=== PATIENT | female | born 1975 | race Caucasian/White ===

== ENCOUNTER 2016-08-18 17:33 | Outpatient (CLI) | payer MEDICAID ==
[~2016-08-18] VITALS: Ht 165.1 cm; Wt 100.0 kg
[2016-08-18 17:38] VITALS: Ht 165.1 cm; Wt 100.0 kg
[2016-08-18 18:01] VITALS: BP 141/66; PULSE 101; RESP 19
--- NOTE | 2016-08-18 18:32 | RADRPT ---
PROCEDURE: US OB. CLINICAL INDICATION: Size and dates , PIH TECHNIQUE: Multiple sonographic images of the pelvis and gravid uterus were obtained. The images were reviewed on a PACS workstation. COMPARISON: No prior studies are available for comparison. FINDINGS: There is a single viable intrauterine gestation. Cardiac activity is present with 144 beats per min jaya. There is a vertex presentation. The placenta is anterior. There is no evidence for an abruption or placenta previa. There is a normal amount of amniotic fluid with an JIN = 15 cm. Measurements were made in order to determine age. The results are as follows: BPD =8.7 cm HC =31.5 cm AC =35.4 cm FL =7.2 cm Estimated gestational age of approximately 36 weeks and 5 days based on ultrasound measurements. Clinical age: 34 weeks and 0 days. The estimated date of delivery is 09/10/16, based on ultrasound measurements. The EFW = 3307 g, >97%, based on LMP age. RPTAT: AA IMPRESSION: Single viable intrauterine gestation of approximately 36 weeks and 5 days based on ultrasound measu rements. Larger than clinical age by almost 3 weeks. .Jori Landis MD, MD Date Time Electronically viewed and signed by .Jori Landis MD, on 08/18/2016 18:32 .S/
[2016-08-18 18:44] LABS: ADD SCAN DIFF NO
[2016-08-18 18:46] LABS: BASOPHILS % 0.4 % (0.0-2.0); EOSINOPHILS # 0.1 10^3/ul (0.0-0.5); HEMATOCRIT 30.6 % (37.0-47.0); HEMOGLOBIN 9.9 g/dl (12.0-16.0); LYMPHOCYTES % 17.7 % (15.0-51.0); MEAN CORPUSCULAR HGB CONC 32.4 g/dl (32.0-37.0); MEAN CORPUSCULAR VOLUME 83.6 fl (82.0-101.0); MEAN PLATELET VOLUME 10.4 fl (7.4-10.4); MONOCYTE # 0.7 10^3/ul (0.3-0.9); MONOCYTES % 6.2 % (0.0-11.0); NEUTROPHIL # 8.2 10^3/ul (1.6-7.5); NEUTROPHILS % 74.2 % (39.0-77.0); PLATELET COUNT 343 10^3/UL (140-415); RED BLOOD COUNT 3.66 10^6/ul (4.20-5.40)
[2016-08-18 19:06] LABS: ADD UMIC YES; URINE BILIRUBIN (Dip) 1+ (NEGATIVE); URINE BLOOD (Dip) TRACE (NEGATIVE); URINE COLOR YELLOW (YELLOW); URINE GLUCOSE (Dip) NEGATIVE (NEGATIVE); URINE KETONES (Dip) TRACE (NEGATIVE); URINE LEUKOCYTE ESTERASE (Dip) NEGATIVE (NEGATIVE); URINE NITRITE (Dip) NEGATIVE (NEGATIVE); URINE TOTAL PROTEIN (Dip) 1+ (NEGATIVE); URINE UROBILINOGEN (Dip) 1.0 E.U./dL (0.1-1.0)
[2016-08-18 19:10] LABS: ALBUMIN 3.3 g/dl (3.3-4.9)
[2016-08-18 19:11] LABS: POTASSIUM 3.7 mmol/L (3.5-5.1)
[2016-08-18 19:13] LABS: ALBUMIN/GLOBULIN RATIO 1.03; BILIRUBIN,INDIRECT 0.1 mg/dl (0-1.1); BILIRUBIN,TOTAL 0.1 mg/dl (0.2-1.3); CREATININE 0.53 mg/dl (0.44-1.00); TOTAL PROTEIN 6.5 g/dl (6.1-8.1)
[2016-08-18 19:14] LABS: CALCIUM 8.7 mg/dl (8.4-10.2); URIC ACID 3.9 mg/dl (3.1-7.9)
[2016-08-18 19:26] LABS: ICTOTEST NEGATIVE (NEGATIVE)
[2016-08-18 19:27] LABS: SQUAMOUS EPITHELIAL CELL,UR MANY; URINE RBCS 0-2 /HPF (0)
[2016-08-18 19:28] LABS: BACTERIA,URINE FEW
--- NOTE | 2016-08-18 20:41 | PN ---
Date/Time of Note Date/Time of Note DATE: 08/18/16 TIME: 20:36 OB Subjective Subjective Subjective 41 yo P3 @34 wks, sent for PIH, BP's here 125-135/60-75 denies headache, blurry vision, or ruq pain good fm, no vb, no lof OB Objective Objective Objective see bp's in HPI Abdomen- gravid, n/t SVE- deferred FHT- CAt I [place]- irreg ctx labs- nml PIH labs; 1+ protein in urine Abdomen: WNL Extremities: Normal Membranes: Intact Accelerations: Accelerations Present Decelerations: No Decelerations Varibility: Moderate Contractions on Admission: 6-10 Minutes Apart Intensity: Mild OB Assessment/Plan Other Assessment: 41 yo P3 @ 34 wks, r/o PIH - reassuring status - nml BP's Other plan: d/c home w 24 hr urine collection and PIH precautions patient to f/u w JAMES Pathak MD Aug 18, 2016 20:41
--- NOTE | 2016-08-18 21:10 | TRIAGE ---
OB Triage Datetime Report Generated by CPN: 08/18/2016 21:09 Datetime: 08/18/2016 20:25 Stage of : OB Triage Labor Evaluation Frequency: IRREGULAR Monitor Mode: External Duration (sec)2399: 30-40 Heart Rate FHR Baseline Rate: 140 Monitor Mode: External US Variability: Moderate 6-25 bpm Accelerations: 15X15 Decelerations: None Category: Category I Datetime: 08/18/2016 20:06 Stage of : OB Triage Datetime: 08/18/2016 20:00 Stage of : OB Triage Datetime: 08/18/2016 19:32 Stage of : OB Triage Labor Evaluation Frequency: OCCASIONALLY Monitor Mode: External Duration (sec)2399: 40-60 Quality: Mild Pattern: Normal: <= 5 Contractions in 10 Minutes Heart Rate FHR Baseline Rate: 155 Monitor Mode: External US Variability: Moderate 6-25 bpm Accelerations: 15X15 Decelerations: None Category: Category I Pain Presence: None/Denies Datetime: 08/18/2016 18:59 Labor Evaluation Frequency: IRREG Monitor Mode: External Duration (sec)2399: 50-100 Pattern: Normal: <= 5 Contractions in 10 Minutes Resting Tone [place]: Relaxed Contraction Comments: PT. DENIES FEELING UC'S Heart Rate FHR Baseline Rate: 140 Monitor Mode: External US Variability: Moderate 6-25 bpm Accelerations: 15X15 Decelerations: Variable Category: Category II Comments: MILD VARIABLE DECELS NOTED Pain Assessment Pain Scale: 4 Pain Presence: Intermittent Pain Type: Pressure Pain Location: Abdomen Pain Relief Measures: Comfort Measures Datetime: 08/18/2016 18:08 Labor Evaluation Frequency: 2-4 Monitor Mode: External Duration (sec)2399: 40-80 Pattern: Normal: <= 5 Contractions in 10 Minutes Resting Tone [place]: Relaxed Contraction Comments: PT. DENIES FEELING UC'S Heart Rate FHR Baseline Rate: 145 Monitor Mode: External US Variability: Moderate 6-25 bpm Accelerations: 15X15 Decelerations: None Category: Category I Pain Assessment Pain Scale: 4 Pain Presence: Intermittent Pain Type: Pressure Pain Location: Abdomen Pain Relief Measures: Comfort Measures Datetime: 08/18/2016 17:54 Time of Arrival: 08/18/2016 17:29 EGA: 34.0 Arrived By: Ambulatory Arrived From: Office Chief Complaint: PRESCRIPTION FROM CLINIC FOR PIH WORK UP, SONO FOR EFW AND JIN Movement: Present Contractions: Denies/Absent Rupture of Membranes: Denies Vaginal Bleeding: None Vaginal Discharge: Denies Recent Sexual Intercouse: Denies Abdominal Trauma: Not Applicable Patient Complaints: None Time Provider Notified: 08/18/2016 20:06 Provider Notified: DR. TORRES Initial Plan: V/S, TOCO- U/S, CBC, CMP, URIC ACID, U/A, EFW, JIN Datetime: 08/18/2016 17:41 Stage of : OB Triage Pain Presence: None/Denies
== END 2016-08-18 20:40 | disposition home or self-care (01) ==
LOC: OBT 17:33 → L-D 17:34 → OBT 20:40
PROVIDERS: ATTEND Obstetrics & Gynecology
DX: O26.893 Other specified pregnancy related conditions, third trimester (principal); R03.0 Elevated blood-pressure reading, without diagnosis of hypertension; O09.523 Supervision of elderly multigravida, third trimester; Z3A.34 34 weeks gestation of pregnancy
CPT/HCPCS: 76815; 80053; 81001; 84560; 85025; Z7500; 81003; G0463

== ENCOUNTER 2016-08-19 22:08 | Outpatient (CLI) | payer MEDICAID ==
[~2016-08-19] VITALS: Ht 165.1 cm; Wt 100.8 kg
[2016-08-19 22:24] VITALS: Ht 165.1 cm; Wt 100.8 kg
[2016-08-19 22:25] VITALS: BP 131/66; PULSE 90; RESP 20
[2016-08-19 22:39] LABS: ADD SCAN DIFF NO
[2016-08-19 22:41] LABS: BASOPHILS % 0.3 % (0.0-2.0); EOSINOPHILS # 0.1 10^3/ul (0.0-0.5); EOSINOPHILS % 1.4 % (0.0-7.0); HEMATOCRIT 30.2 % (37.0-47.0); HEMOGLOBIN 10.1 g/dl (12.0-16.0); LYMPHOCYTES # 1.7 10^3/ul (0.8-2.9); LYMPHOCYTES % 19.5 % (15.0-51.0); MEAN CORPUSCULAR HEMOGLOBIN 27.5 pg (29.0-33.0); MEAN CORPUSCULAR HGB CONC 33.4 g/dl (32.0-37.0); MEAN CORPUSCULAR VOLUME 82.3 fl (82.0-101.0); MEAN PLATELET VOLUME 9.9 fl (7.4-10.4); MONOCYTE # 0.5 10^3/ul (0.3-0.9); MONOCYTES % 5.5 % (0.0-11.0); NEUTROPHIL # 6.4 10^3/ul (1.6-7.5); PLATELET COUNT 341 10^3/UL (140-415); RED BLOOD COUNT 3.67 10^6/ul (4.20-5.40); WHITE BLOOD COUNT 8.8 10^3/ul (4.8-10.8)
[2016-08-19 22:53] LABS: ALBUMIN 3.2 g/dl (3.3-4.9)
[2016-08-19 22:54] LABS: POTASSIUM 3.7 mmol/L (3.5-5.1)
[2016-08-19 22:56] LABS: BILIRUBIN,INDIRECT 0.1 mg/dl (0-1.1); BILIRUBIN,TOTAL 0.1 mg/dl (0.2-1.3); CREATININE 0.42 mg/dl (0.44-1.00); TOTAL PROTEIN 6.4 g/dl (6.1-8.1); URIC ACID 3.6 mg/dl (3.1-7.9)
--- NOTE | 2016-08-20 01:45 | TRIAGE ---
OB Triage Datetime Report Generated by CPN: 08/20/2016 01:45 Datetime: 08/19/2016 23:54 Stage of : OB Triage Labor Evaluation Frequency: x1 Monitor Mode: External Duration (sec)2399: 60 Quality: Mild Pattern: Normal: <= 5 Contractions in 10 Minutes Resting Tone [place]: Relaxed Heart Rate FHR Baseline Rate: 135 Monitor Mode: External US FHR Baseline Changes: No Baseline Change Variability: Moderate 6-25 bpm Accelerations: 15X15 Decelerations: None Category: Category I Datetime: 08/19/2016 23:40 Stage of : OB Triage Datetime: 08/19/2016 23:32 Stage of : OB Triage Datetime: 08/19/2016 23:29 Stage of : OB Triage Datetime: 08/19/2016 23:10 Stage of : OB Triage Datetime: 08/19/2016 23:00 Stage of : OB Triage Labor Evaluation Frequency: x3 Monitor Mode: External Duration (sec)2399: 40-60 Quality: Mild Pattern: Normal: <= 5 Contractions in 10 Minutes Resting Tone [place]: Relaxed Heart Rate FHR Baseline Rate: 135 Monitor Mode: External US Variability: Moderate 6-25 bpm Accelerations: 15X15 Decelerations: None Category: Category I Datetime: 08/19/2016 22:18 Stage of : OB Triage Temperature Route: Oral Pain Assessment Pain Scale: 0 Pain Presence: None/Denies Pain Type: N/A Datetime: 08/19/2016 22:17 Assessment Type: Triage Maternal Assessment Level of Consciousness: Fully Conscious DTR's/Clonus: DTRs 2+; No Clonus Headache: Denies Blurred Vision: No Respiratory Effort: Unlabored; Regular Rhythm; Equal Expansion Breath Sounds, Left: Clear and Equal Breath Sounds, Right: Clear and Equal Nausea/Vomiting: Hx of Nausea/Vomiting (Annotations: Nausea eariler today. Denies at this time.) RUQ Epigastric Pain: Denies Lower Extremities Edema: None Degree: None Upper Extremities Edema: None Degree: None Facial Edema: None Fall Risk Assessment History of Falling: (0) No Secondary Diagnosis: (0) No Ambulatory Aid: (0) Bedrest/Nurse Assist IV Therapy: (0) No Gait: (0) Normal/Bedrest/Immobile Mental Status: (0) Oriented to Own Ability Fall Score: 0 Fall Risk Score Definition: No Risk: No action required Datetime: 08/19/2016 22:14 Monitor Mode: External Contraction Comments: [place] applied Heart Rate FHR Baseline Rate: 145 Monitor Mode: External US Comments: EFM applied Datetime: 08/19/2016 22:10 Time of Arrival: 08/19/2016 22:00 EGA: 34.1 Arrived By: Wheelchair Arrived From: Home Chief Complaint: 24hr urine drop-off Repeat CBC, CMP, uric acid Movement: Present Contractions: Denies/Absent Rupture of Membranes: Denies Vaginal Bleeding: None Vaginal Discharge: Denies Abdominal Trauma: Not Applicable Patient Complaints: None; Other Additional Patient Complaints: 24hr urine drop-off Time Provider Notified: 08/19/2016 22:05 Provider Notified: Initial Plan: EFM x2, BPs [id number], CBC, CMP, uric acid Datetime: 08/19/2016 22:05 Stage of : OB Triage Datetime: 08/18/2016 20:30 Stage of : OB Triage Datetime: 08/18/2016 17:54 EGA: 34.0
[2016-08-20 03:27] LABS: SCRET 0.42 mg/dl (0.44-1.00)
== END 2016-08-20 00:02 | disposition home or self-care (01) ==
LOC: L-D 22:08 → OBT 22:08
PROVIDERS: ATTEND Obstetrics & Gynecology
DX: O60.03 Preterm labor without delivery, third trimester (principal); O14.93 Unspecified pre-eclampsia, third trimester; O09.513 Supervision of elderly primigravida, third trimester; Z3A.34 34 weeks gestation of pregnancy
CPT/HCPCS: 80053; 82575; 84156; 84560; 85025; Z7500; G0463

== ENCOUNTER 2016-09-15 18:35 | Inpatient (IN) | payer MEDICAID ==
[~2016-09-15] VITALS: Ht 165.1 cm; Wt 103.3 kg
[2016-09-15 18:57] VITALS: Ht 165.1 cm; Wt 103.3 kg
--- NOTE | 2016-09-15 19:46 | RADRPT ---
PROCEDURE: OB ultrasound for biophysical profile CLINICAL INDICATION: Macrosomia.. TECHNIQUE: Multiple sonographic images of the gravid uterus performed. The images were reviewed on a PACS workstation. COMPARISON: 09/13/2016 FINDINGS: A single live intrauterine is identified with heart rate of 156 bpm. Fet us is in a cephalic presentation. Placenta is located anterior. Biophysical profile: breathing movement = 2/2 tone = 2/2 motion = 2/2 JIN = 2/2 JIN = 14.3 cm. IMPRESSION: 1. Single live intrauterine gestation. 2. Biophysical profile = 8/8. 3. JIN = 14.3 cm. RPTAT: HMVK .All Baum MD, Date Time Electronically viewed and signed by .All Baum MD, MD on 09/15/2016 19:46 .K/
[2016-09-15 19:47] LABS: ADD SCAN DIFF NO
--- NOTE | 2016-09-15 19:48 | RADRPT ---
PROCEDURE: US OB. CLINICAL INDICATION: Macrosomia. TECHNIQUE: Multiple sonographic images of the pelvis were obtained. Transabdominal imaging only w as performed. The images were reviewed on a PACS workstation. COMPARISON: 09/13/2016. FINDINGS: Single live intrauterine is identified. Cardiac activity is present with 68 beats per min cher-ae heights. There is a vertex presentation. Measurements: BPD = 39-week 0 days. HC = 39 weeks 1 day. AC = 41 weeks 6 days. FL = 40 weeks 2 days. Estimated gestational age of approximately 40 weeks 1 day. The EFW = 4200 g which is at the greater than 97%. The placenta is anterior. There is no evidence for placenta previa. IMPRESSION: Single live intrauterine gestation of approximately 40 weeks 1 day. size is greater than 97 p ercentile. RPTAT: HMVK .All Baum MD, Date Time Electronically viewed and signed by .All Baum MD, MD on 09/15/2016 19:48 .K/
[2016-09-15 19:51] LABS: BASOPHILS % 0.3 % (0.0-2.0); EOSINOPHILS # 0.1 10^3/ul (0.0-0.5); EOSINOPHILS % 0.9 % (0.0-7.0); HEMATOCRIT 29.9 % (37.0-47.0); HEMOGLOBIN 9.9 g/dl (12.0-16.0); LYMPHOCYTES # 1.8 10^3/ul (0.8-2.9); MEAN CORPUSCULAR HEMOGLOBIN 26.5 pg (29.0-33.0); MEAN CORPUSCULAR HGB CONC 33.1 g/dl (32.0-37.0); MEAN CORPUSCULAR VOLUME 79.9 fl (82.0-101.0); MEAN PLATELET VOLUME 10.1 fl (7.4-10.4); MONOCYTE # 0.5 10^3/ul (0.3-0.9); MONOCYTES % 4.8 % (0.0-11.0); NEUTROPHIL # 7.4 10^3/ul (1.6-7.5); NEUTROPHILS % 75.4 % (39.0-77.0); PLATELET COUNT 332 10^3/UL (140-415); RED BLOOD COUNT 3.74 10^6/ul (4.20-5.40); RED CELL DISTRIBUTION WIDTH 13.7 % (11.5-14.5); WHITE BLOOD COUNT 9.8 10^3/ul (4.8-10.8)
[2016-09-15 19:59] LABS: ADD UMIC YES; URINE BILIRUBIN (Dip) NEGATIVE (NEGATIVE); URINE BLOOD (Dip) TRACE (NEGATIVE); URINE COLOR LT. YELLOW (YELLOW); URINE GLUCOSE (Dip) NEGATIVE (NEGATIVE); URINE KETONES (Dip) TRACE (NEGATIVE); URINE LEUKOCYTE ESTERASE (Dip) TRACE (NEGATIVE); URINE NITRITE (Dip) NEGATIVE (NEGATIVE); URINE TOTAL PROTEIN (Dip) TRACE (NEGATIVE); URINE UROBILINOGEN (Dip) 1.0 E.U./dL (0.1-1.0)
[2016-09-15 20:02] LABS: ALBUMIN 3.2 g/dl (3.3-4.9); POTASSIUM 3.6 mmol/L (3.5-5.1)
[2016-09-15 20:04] LABS: CREATININE 0.64 mg/dl (0.44-1.00)
[2016-09-15 20:05] LABS: ALBUMIN/GLOBULIN RATIO 0.91; BILIRUBIN,INDIRECT 0.3 mg/dl (0-1.1); BILIRUBIN,TOTAL 0.3 mg/dl (0.2-1.3); CALCIUM 9.2 mg/dl (8.4-10.2); TOTAL PROTEIN 6.7 g/dl (6.1-8.1)
[2016-09-15 20:08] LABS: BACTERIA,URINE MODERATE; URINE RBCS 0-2 /HPF (0)
[2016-09-15] MEDS ORDERED: ACETAMINOPHEN 325 MG TAB PO PRN (21:30)
[2016-09-16] MEDS ORDERED: MAGNESIUM SULFATE 4 GM/100 ML 100 ML IV SCH (02:00)
[2016-09-16] MEDS: LACTATED RINGER'S 1,000 ML IV SCH ×2 (02:43→14:48)
[2016-09-16] MEDS: MAGNESIUM SULFATE 20 GM/500 ML 500 ML IV SCH ×3 (02:44→23:02)
[2016-09-16] MEDS ORDERED: MULTIVIT/MIN/FOLATE/IRON/PREN TAB PO SCH (09:00)
[2016-09-16] MEDS ORDERED: FERROUS SULFATE (EC) 325 MG TAB PO SCH (09:00)
--- NOTE | 2016-09-16 11:19 | CONS ---
DATE OF ADMISSION: 09/15/2016 DATE OF CONSULTATION: 09/16/2016 NOTE: The patient is a 41-year-old who was admitted, I do believe, with elevated blood pressure. S he has chronic hypertension, and she has had moderate range blood pressures during her hospital stay . She is currently at 38 weeks and 1 day with an estimated weight of 4200 grams. RECOMMENDATIONS: Delivery secondary to chronic hypertension and worsening. Dictated By: SUDEEP LUGO/VALERIY Conf#: [id number] DID#: [id number]
[2016-09-16 14:30] LABS: ADD SCAN DIFF NO
[2016-09-16 14:32] LABS: BASOPHILS % 0.2 % (0.0-2.0); EOSINOPHILS # 0.1 10^3/ul (0.0-0.5); EOSINOPHILS % 0.6 % (0.0-7.0); HEMATOCRIT 30.7 % (37.0-47.0); HEMOGLOBIN 9.7 g/dl (12.0-16.0); LYMPHOCYTES # 1.3 10^3/ul (0.8-2.9); LYMPHOCYTES % 16.3 % (15.0-51.0); MEAN CORPUSCULAR HEMOGLOBIN 25.5 pg (29.0-33.0); MEAN CORPUSCULAR HGB CONC 31.6 g/dl (32.0-37.0); MEAN CORPUSCULAR VOLUME 80.6 fl (82.0-101.0); MEAN PLATELET VOLUME 10.4 fl (7.4-10.4); MONOCYTE # 0.4 10^3/ul (0.3-0.9); MONOCYTES % 4.8 % (0.0-11.0); NEUTROPHIL # 6.3 10^3/ul (1.6-7.5); NEUTROPHILS % 77.7 % (39.0-77.0); PLATELET COUNT 335 10^3/UL (140-415); RED BLOOD COUNT 3.81 10^6/ul (4.20-5.40); RED CELL DISTRIBUTION WIDTH 13.9 % (11.5-14.5); WHITE BLOOD COUNT 8.2 10^3/ul (4.8-10.8)
[2016-09-16 14:45] LABS: PROTIME 13.2 Sec (12.2-14.2)
[2016-09-16 14:46] LABS: PARTIAL THROMBOPLASTIN TIME 25.1 Sec (25.0-35.0)
[2016-09-16 14:49] LABS: ALBUMIN 3.2 g/dl (3.3-4.9); ALBUMIN/GLOBULIN RATIO 0.88; BILIRUBIN,INDIRECT 0.2 mg/dl (0-1.1); BILIRUBIN,TOTAL 0.2 mg/dl (0.2-1.3); CALCIUM 7.8 mg/dl (8.4-10.2); CREATININE 0.48 mg/dl (0.44-1.00); POTASSIUM 3.9 mmol/L (3.5-5.1); TOTAL PROTEIN 6.8 g/dl (6.1-8.1)
[2016-09-16] MEDS ORDERED: CEFAZOLIN 2 GM/50 ML (PMX) 50 ML IVPB ONE (18:28)
[2016-09-16] MEDS ORDERED: CARBOPROST 250 MCG INJ IM PRN (18:30)
[2016-09-16] MEDS ORDERED: OXYTOCIN 30 UNITS/LR 500 ML IV PRN (18:30)
[2016-09-16] MEDS ORDERED: METHYLERGONOVINE 0.2 MG INJ IM PRN (18:30)
[2016-09-16] MEDS ORDERED: CEFAZOLIN 2 GM/50 ML (PMX) 50 ML IV SCH (18:30)
[2016-09-16] MEDS ORDERED: MISOPROSTOL 200 MCG TAB PR PRN (18:30)
[2016-09-16 19:17] LABS: ADD SCAN DIFF NO
[2016-09-16 19:19] LABS: BASOPHILS % 0.3 % (0.0-2.0); EOSINOPHILS # 0.1 10^3/ul (0.0-0.5); EOSINOPHILS % 0.7 % (0.0-7.0); HEMATOCRIT 31.5 % (37.0-47.0); HEMOGLOBIN 10.4 g/dl (12.0-16.0); LYMPHOCYTES # 1.6 10^3/ul (0.8-2.9); LYMPHOCYTES % 17.5 % (15.0-51.0); MEAN CORPUSCULAR HEMOGLOBIN 26.5 pg (29.0-33.0); MEAN CORPUSCULAR VOLUME 80.2 fl (82.0-101.0); MEAN PLATELET VOLUME 10.4 fl (7.4-10.4); MONOCYTE # 0.5 10^3/ul (0.3-0.9); MONOCYTES % 5.1 % (0.0-11.0); NEUTROPHIL # 6.8 10^3/ul (1.6-7.5); PLATELET COUNT 338 10^3/UL (140-415); RED BLOOD COUNT 3.93 10^6/ul (4.20-5.40); RED CELL DISTRIBUTION WIDTH 13.9 % (11.5-14.5)
[2016-09-16] MEDS ORDERED: OXYTOCIN 30 UNITS/LR 500 ML IV SCH (19:30)
[2016-09-16 19:59] LABS: SCRET 0.48 mg/dl (0.44-1.00)
[2016-09-16 20:58] LABS: PROTIME 12.7 Sec (12.2-14.2)
[2016-09-16 20:59] LABS: INR 0.95
[2016-09-16 21:01] LABS: PARTIAL THROMBOPLASTIN TIME 26.3 Sec (25.0-35.0)
[2016-09-16] MEDS ORDERED: OXYTOCIN 30 UNITS/LR 500 ML IV ONE (21:31)
[2016-09-16] MEDS ORDERED: METOCLOPRAMIDE 10 MG INJ ONE (21:31)
[2016-09-16] MEDS ORDERED: morphine SULFATE/PF (10 MG/10 ML) INJ ONE (21:31)
[2016-09-16] MEDS ORDERED: KETOROLAC 30 MG INJ ONE (21:31)
[2016-09-16] MEDS ORDERED: EPHEDrine SULFATE 50 MG/5 ML SYG ONE (21:47)
[2016-09-16] MEDS ORDERED: DIPHENHYDRAMINE 50 MG INJ IV PRN ×2 (23:00)
[2016-09-16] MEDS ORDERED: KETOROLAC 30 MG INJ IV PRN (23:00)
[2016-09-16] MEDS ORDERED: METOCLOPRAMIDE 10 MG INJ IV PRN (23:00)
[2016-09-16] MEDS ORDERED: NALOXONE (0.4 MG/ML) INJ IV PRN (23:00)
[2016-09-16] MEDS ORDERED: MEPERIDINE 25 MG INJ IV PRN (23:00)
[2016-09-16] MEDS ORDERED: ONDANSETRON 4 MG INJ IV PRN ×2 (23:00)
[2016-09-16] MEDS ORDERED: HYDROmorphONE (0.2 MG/ML) 10ML SYG IV PRN ×3 (23:00)
[2016-09-16] MEDS ORDERED: HYDROmorphONE 1 MG/ML SYG IV PRN ×3 (23:00)
[2016-09-17] VITALS (21 sets, daily range): BP systolic 111–150; BP diastolic 56–84; PULSE 81–92; RESP 18–20
--- NOTE | 2016-09-17 00:21 | PREOPHP ---
DATE OF ADMISSION: 09/15/2016 HISTORY OF PRESENT ILLNESS: A 41-year-old female, 4, para 3, estimated date of delivery at 38 weeks gestation was admitted due to elevated blood pressure. PAST MEDICAL HISTORY: Unremarkable. ALLERGIES: NO KNOWN ALLERGIES. FAMILY HISTORY: Noncontributory. PHYSICAL EXAMINATION: VITAL SIGNS: The patient is afebrile, blood pressure 140s to 160s over diastolic 80s and 90s. HEAD, NECK AND CHEST: Within normal limits. ABDOMEN: Soft, nontender and gravid. EXTREMITIES: Within normal limits. NEUROLOGIC: Within normal limits. HOSPITAL COURSE: The patient was admitted due to elevated blood pressure. The patient was given in travenous magnesium sulfate for seizure prophylaxis. Obstetric ultrasound gave an estimated w eight of 4200 grams. Recommendation of perinatologist is to deliver the patient. The patient is co unseled about her options of delivery either with induction of labor or delivery by primary section. The patient was counseled about suspected macrosomia based on estimated weigh t from ultrasound. The patient was counseled about the potential complications of shoulder dystocia . After counseling, the patient said she understood and the patient elected to deliver by primary c esarean section. Risks, benefits and alternatives of the procedure were explained to the patient. The patient said she understood and gave informed consent for the procedure. Dictated By: NORBERT ADAIR/VALERIY Conf#: [id number] DID#: [id number]
[2016-09-17] MEDS: LACTATED RINGER'S 1,000 ML IV SCH ×3 (01:51→19:00)
[2016-09-17] MEDS ORDERED: LANOLIN 7 GM TUBE TOP PRN (02:00)
[2016-09-17] MEDS ORDERED: CARBOPROST 250 MCG INJ IM PRN (02:00)
[2016-09-17] MEDS ORDERED: MISOPROSTOL 200 MCG TAB PR PRN (02:00)
[2016-09-17] MEDS ORDERED: METHYLERGONOVINE 0.2 MG INJ IM PRN (02:00)
[2016-09-17] MEDS ORDERED: OXYTOCIN 30 UNITS/LR 500 ML IV PRN (02:00)
[2016-09-17] MEDS: OXYTOCIN 30 UNITS/LR 500 ML IV SCH ×2 (05:38→05:51)
--- NOTE | 2016-09-17 05:53 | OPR ---
DATE OF OPERATION: 09/16/2016 PREOPERATIVE DIAGNOSES: 1. at 38 weeks and 1 day. 2. Preeclampsia. 3. Suspected macrosomia. POSTOPERATIVE DIAGNOSES: 1. at 38 weeks and 1 day. 2. Preeclampsia. 3. Suspected macrosomia. OPERATION PERFORMED: Primary low transverse section. SURGEON: Norbert Vann MD JET PILOT: Alida Aldana MD ANESTHESIA: Spinal. ANESTHESIOLOGIST: DESCRIPTION OF PROCEDURE: The patient was taken to the operating room and placed on the operating table. After successful spinal anesthesia was given, the patient was placed in supine position. The area was prepared and draped in the usual sterile fashion. Spinal anesthesia was tested and was satisfactory. Using a scalpel, a Pfannenstiel incision was made about 2 fingerbreadths above the symphysis pubis. The incision was carried down to the fascia. Fascia was incised and extended bilaterally with Tirado scissors. Two Lilly's were used to separate the fascia from the muscle. The muscle was dissected down to anterior peritoneum. The peritoneum was bluntly entered. Using a scalpel, a small transverse incision was made in the lower segment of the uterus. Upon entering the uterine cavity, bandage scissors were inserted to extend the incision bilaterally, curved up. Baby was delivered from cephalic presentation. After suctioning clear of amniotic fluid, the baby was handed off to the team in attendance. Apgars were 9 and 9, weight was 9 pounds 6 ounces. The placenta was delivered without difficulty. Uterus was closed with #1 Monocryl continuous locked after assuring hemostasis. Both ovaries and tubes were inspected, all looked normal. The peritoneal cavity was irrigated with warm saline. Peritoneum was closed with 2-0 Vicryl continuous. The fascia was closed with #1 Vicryl continuous in 2 segments. Subcutaneous tissue was reapproximated with 2-0 plain. The skin was closed with jelani. ESTIMATED BLOOD LOSS: 600 mL. COMPLICATIONS: None. COUNTS: All counts were correct. Dictated By: NORBERT ADAIR/VALERIY Conf#: [id number] DID#: [id number] MTDD
--- NOTE | 2016-09-17 07:09 | PN ---
Date/Time of Note Date/Time of Note DATE: 09/17/16 TIME: 07:07 Assessment/Plan VTE Prophylaxis VTE Prophylaxis Intervention: ambulation Lines/Catheters IV Catheter Type (from Nrsg): Peripheral IV Subjective 24 Hr Interval Summary Free Text/Dictation Anesthesia Note: A 41 year female s/p C/S with duramph for post op pain, pt is doing fine, pain is controoed, no N/V, headache, itching. back is clean no irritation or inflammation. care per surgery team Exam/Review of Systems Vital Signs Vitals Vital Signs Date Time Temp Pulse Resp B/P Pulse Ox O2 Delivery O2 Flow Rate FiO2 09/17/16 06:30 98.0 86 18 125/70 Room Air Intake and Output 09/16/16 09/16/16 09/17/16 15:00 23:00 07:00 Intake Total 731.25 ml 2750 ml 1800 ml Output Total 1000 ml 1250 ml Balance 731.25 ml 1750 ml 550 ml Results Result Diagram: 09/16/16 1910 09/16/16 1425 Results 24 hrs Laboratory Tests Test 09/16/16 12:20 09/16/16 14:25 09/16/16 17:00 09/16/16 18:00 Magnesium Level 4.4 H 4.8 H White Blood Count 8.2 Red Blood Count 3.81 L Hemoglobin 9.7 L Hematocrit 30.7 L Mean Corpuscular Volume 80.6 L Mean Corpuscular Hemoglobin 25.5 L Mean Corpuscular Hemoglobin Concent 31.6 L Red Cell Distribution Width 13.9 Platelet Count 335 Mean Platelet Volume 10.4 Neutrophils % 77.7 H Lymphocytes % 16.3 Monocytes % 4.8 Eosinophils % 0.6 Basophils % 0.2 Nucleated Red Blood Cells % 0.0 Neutrophils # 6.3 Lymphocytes # 1.3 Monocytes # 0.4 Eosinophils # 0.1 Basophils # 0.0 Nucleated Red Blood Cells # 0.0 Prothrombin Time 13.2 Prothrombin Time Ratio 1.0 INR International Normalized Ratio 1.00 Activated Partial Thromboplast Time 25.1 Sodium Level 132 L Potassium Level 3.9 Chloride Level 103 Carbon Dioxide Level 20 L Anion Gap 13 Blood Urea Nitrogen 7 Creatinine 0.48 Glucose Level 148 Calcium Level 7.8 L Total Bilirubin 0.2 Direct Bilirubin 0.00 Indirect Bilirubin 0.2 Aspartate Amino Transf (AST/SGOT) 34 Alanine Aminotransferase (ALT/SGPT) 34 Alkaline Phosphatase 258 H Total Protein 6.8 Albumin 3.2 L Globulin 3.60 H Albumin/Globulin Ratio 0.88 Urine Random Creatinine 29.63 Urine Total Volume 24 Hours 3825 Urine Creatinine Timed 24 Creatinine Clearance 164.0 H Test 09/16/16 19:10 09/16/16 19:35 09/17/16 00:37 White Blood Count 9.0 Red Blood Count 3.93 L Hemoglobin 10.4 L Hematocrit 31.5 L Mean Corpuscular Volume 80.2 L Mean Corpuscular Hemoglobin 26.5 L Mean Corpuscular Hemoglobin Concent 33.0 Red Cell Distribution Width 13.9 Platelet Count 338 Mean Platelet Volume 10.4 Neutrophils % 76.0 Lymphocytes % 17.5 Monocytes % 5.1 Eosinophils % 0.7 Basophils % 0.3 Nucleated Red Blood Cells % 0.0 Neutrophils # 6.8 Lymphocytes # 1.6 Monocytes # 0.5 Eosinophils # 0.1 Basophils # 0.0 Nucleated Red Blood Cells # 0.0 Prothrombin Time 12.7 Prothrombin Time Ratio 1.0 INR International Normalized Ratio 0.95 Activated Partial Thromboplast Time 26.3 Hepatitis B Surface Antigen NEGATIVE Urine Total Protein 11.5 H Magnesium Level 5.1 *H Medications Medications Current Medications Magnesium Sulfate 500 ml @ 50 mls/hr Q10H IV Last administered on 09/16/16t 23: 02; Admin Dose 50 MLS/HR; Start 09/16/16 at 02:30 Oxytocin/Lactated Ringer's 500 ml @ 0 mls/hr ONCE PRN IV For Hemorrhage Management; Start 09/16/16 at 18:30 Naloxone HCl (Narcan) 0.1 mg Q2M PRN IV FOR RESP RATE 8 OR LESS; Start 09/16/16 at 23:00; Stop 09/17/16 at 22:59 Ketorolac Tromethamine (Toradol) 30 mg Q6H PRN IV PAIN; Start 09/16/16 at 23:00 ; Stop 09/17/16 at 22:59 Hydromorphone HCl (Dilaudid) 1 mg Q3H PRN IV BREAKTHROUGH PAIN; Start 09/16/16 at 23:00; Stop 09/17/16 at 22:59 Hydromorphone HCl (Dilaudid) 0.2 mg Q3H PRN IV PAIN LEVEL 1-5; Start 09/16/16 at 23:00; Stop 09/17/16 at 22:59 Hydromorphone HCl (Dilaudid) 0.4 mg Q3H PRN IV PAIN LEVEL 6-10; Start 09/16/16 at 23:00; Stop 09/17/16 at 22:59 Diphenhydramine HCl (Benadryl) 25 mg Q6H PRN IV ITCHING Last administered on 02:46; Admin Dose 25 MG; Start 09/16/16 at 23:00; Stop 09/17/16 at 22:59 Ondansetron HCl 4 mg 4 mg Q6H PRN IV NAUSEA AND/OR VOMITING Last administered on 09/17/16 06:38; Admin Dose 4 MG; Start 09/16/16 at 23:00; Stop 09/17/16 at 22: 59 Lactated Ringer's 1,000 ml @ 125 mls/hr Q8H IV ; Start 09/17/16 at 01:51 Oxytocin/Lactated Ringer's 500 ml @ 125 mls/hr Q4H IV Last administered on 09/17 05:38; Admin Dose 125 MLS/HR; Start 09/17/16 at 01:51; Stop 09/17/16 at 09: 50 Oxycodone/ Acetaminophen (Percocet (5/ 325)) 1 tab Q4H PRN PO PAIN LEVEL 4-6; Start 09/17/16 at 23:00 Oxycodone/ Acetaminophen (Percocet (5/ 325)) 2 tab Q4H PRN PO PAIN LEVEL 7-10; Start 09/17/16 at 23:00 Ibuprofen (Motrin) 800 mg Q8 PO ; Start 09/17/16 at 22:00 Simethicone (Mylicon) 160 mg Q8H PRN PO DISTENSION/GAS/BLOATING; Start 09/17/16 at 02:00 Senna/Docusate Sodium (Senokot-S) 1 tab BID PO ; Start 09/17/16 at 09:00 Diphtheria/ Tetanus/Acell Pertussis 0.5 ml 0.5 ml ONCE ONCE IM* ; Start at 09:00; Stop 09/19/16 at 09:01 Oxytocin/Lactated Ringer's 500 ml @ 0 mls/hr ONCE PRN IV For Hemorrhage Management; Start 09/17/16 at 02:00 Methylergonovine Maleate (Methergine) 0.2 mg ONCE PRN IM VAGINAL BLEEDING; Start 09/17/16 at 02:00 Carboprost Tromethamine (Hemabate) 250 mcg ONCE PRN IM VAGINAL BLEEDING; Start 09/17/16 at 02:00 Misoprostol (Cytotec) 1,000 mcg ONCE PRN MS VAGINAL BLEEDING; Start 09/17/16 at 02:00 DC ACUÑA MD Sep 17, 2016 07:09
[2016-09-17 07:36] LABS: ADD SCAN DIFF NO
[2016-09-17 07:39] LABS: BASOPHILS % 0.1 % (0.0-2.0); HEMATOCRIT 29.5 % (37.0-47.0); HEMOGLOBIN 9.2 g/dl (12.0-16.0); LYMPHOCYTES # 0.9 10^3/ul (0.8-2.9); LYMPHOCYTES % 6.6 % (15.0-51.0); MEAN CORPUSCULAR HEMOGLOBIN 25.6 pg (29.0-33.0); MEAN CORPUSCULAR HGB CONC 31.2 g/dl (32.0-37.0); MEAN CORPUSCULAR VOLUME 82.2 fl (82.0-101.0); MEAN PLATELET VOLUME 10.7 fl (7.4-10.4); MONOCYTE # 0.5 10^3/ul (0.3-0.9); MONOCYTES % 3.4 % (0.0-11.0); NEUTROPHIL # 12.3 10^3/ul (1.6-7.5); NEUTROPHILS % 89.6 % (39.0-77.0); PLATELET COUNT 325 10^3/UL (140-415); RED BLOOD COUNT 3.59 10^6/ul (4.20-5.40); WHITE BLOOD COUNT 13.7 10^3/ul (4.8-10.8)
[2016-09-17] MEDS: MAGNESIUM SULFATE 20 GM/500 ML 500 ML IV SCH ×2 (08:36→17:52)
[2016-09-17] MEDS: SENNA/DOCUSATE NA (8.6MG/50MG) TAB PO SCH ×2 (09:00→20:33)
[2016-09-17] MEDS ORDERED: LACTATED RINGER'S 500 ML IV ONE (12:00)
--- NOTE | 2016-09-17 12:06 | QN ---
Documentation Comment No complaint Afebrile VSS Abdomen soft ND POD #1 Stable D/C magnesium sulfate after 24 hours. NORBERT TORRES MD Sep 17, 2016 12:05
[2016-09-17] MEDS: IBUPROFEN 800 MG TAB PO SCH (22:05)
[2016-09-18] MEDS: LACTATED RINGER'S 1,000 ML IV SCH (01:51)
[2016-09-18 04:00] VITALS: BP 116/63; PULSE 78; RESP 20
[2016-09-18] MEDS: IBUPROFEN 800 MG TAB PO SCH ×3 (05:37→21:38)
[2016-09-18] MEDS: OXYCODONE/ACETAMINOPHEN (5/325) TAB PO PRN ×2 (08:43→16:25)
[2016-09-18] MEDS: SENNA/DOCUSATE NA (8.6MG/50MG) TAB PO SCH ×2 (08:44→21:00)
[2016-09-18 08:45] VITALS: BP 135/65; PULSE 81; RESP 18
[2016-09-18 12:00] VITALS: BP 121/58; PULSE 79; RESP 18
--- NOTE | 2016-09-18 16:21 | QN ---
Documentation Comment No complaint Afebrile VSS Abdomen soft POD #2 Stable Continue with present care. NORBERT TORRES MD Sep 18, 2016 16:21
[2016-09-18 20:15] VITALS: BP 133/62; PULSE 91; RESP 18
[2016-09-18 23:57] VITALS: BP 132/76; PULSE 80; RESP 18
[2016-09-19 03:55] VITALS: BP 122/71; PULSE 75; RESP 18
[2016-09-19] MEDS: IBUPROFEN 800 MG TAB PO SCH ×2 (05:46→14:07)
[2016-09-19 08:30] VITALS: BP 123/70; PULSE 81; RESP 20
[2016-09-19] MEDS ORDERED: DIPHTH/TET/ACEL PERTUSS (ADULT) 0.5 ML VIAL IM* ONE (09:00)
[2016-09-19] MEDS: SENNA/DOCUSATE NA (8.6MG/50MG) TAB PO SCH (09:25)
[2016-09-19] MEDS: OXYCODONE/ACETAMINOPHEN (5/325) TAB PO PRN ×2 (09:25→14:07)
[2016-09-19 16:37] VITALS: BP 135/69; PULSE 79; RESP 19
--- NOTE | 2016-09-20 05:07 | DS ---
DATE OF ADMISSION: 09/15/2016 DATE OF DISCHARGE: 09/19/2016 ADMITTING DIAGNOSIS: at term with preeclampsia. HISTORY OF PRESENT ILLNESS: A 41-year-old female 4, para 3 at the time of admission, para 4 at time of discharge, with term who was admitted due to elevated blood pressure. The pat ient was given intravenous magnesium sulfate for seizure prophylaxis. On 09/16/2016 after obtaining informed consent, the patient underwent a primary low transverse section due to macr osomia. The patient's operation was uncomplicated. Postoperatively, the patient was given clear li quid diet, which was advanced to regular diet, which she tolerated well. Postoperative for about 24 hours, the patient was given intravenous magnesium sulfate for seizure prophylaxis. Subsequently, the patient's blood pressure became normal. The patient is discharged on postop day #3 after having had adequate bladder and bowel function. CONDITION ON DISCHARGE: Stable. DISCHARGE INSTRUCTIONS DIET: Regular. ACTIVITIES: Pelvic rest and no strenuous activities. MEDICATIONS: 1. Motrin as needed for pain. 2. Continue with vitamins and ferrous sulfate. FOLLOW UP: In clinic in 3 days. FINAL DIAGNOSES: 1. Term , delivered by section. 2. Preeclampsia. 3. macrosomia. 4. Mother with single liveborn. DISPOSITION: Home. Dictated By: NORBERT ADAIR/VALERIY Conf#: [id number] DID#: [id number]
== END 2016-09-19 19:15 | disposition home or self-care (01) | DRG 766 ==
LOC: OBT 18:35 → L-D 18:36 → OBG 21:10 → OBT 21:10 → L-D 09-16 16:49 → PP1 09-17 01:30
PROVIDERS: ADMIT Obstetrics & Gynecology; ATTEND Obstetrics & Gynecology
PROC: 10D00Z1 Extraction of Products of Conception, Low, Open Approach (ICD-10-PCS; principal; 2016-09-16 16:00)
DX: O99.214 Obesity complicating childbirth (principal); E66.9 Obesity, unspecified; Z68.37 Body mass index [BMI] 37.0-37.9, adult; O13.4 Gestational [pregnancy-induced] hypertension without significant proteinuria, complicating childbirth; O36.63X0 Maternal care for excessive fetal growth, third trimester, not applicable or unspecified; O14.94 Unspecified pre-eclampsia, complicating childbirth; Z3A.38 38 weeks gestation of pregnancy; Z37.0 Single live birth
CPT/HCPCS: 76815; 76818; 80053; 81001; 81003; 82575; 83735; 84560; 85025; 85610; 85730; 86592; 86850; 86900; 86901; 87340; 88307; 90715; 99464; G0463; J0690; J1200; J1885; J2274; J2405; J2590; J2765; J3475; J7120